=== PATIENT | male | born 2000 | race Caucasian/White ===

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

== ENCOUNTER → 2022-11-26 | Outpatient (CLI) | payer BC ==
[2022-11-26 08:38] LABS: Basophils # (auto) 0 10 ^3/uL (0-0.2); Basophils % (auto) 0.9 % (0.0-2.0); Eosinophils # (auto) 0.2 10 ^3/uL (0-0.8); Eosinophils % (auto) 6.1 % (0.0-7.0); Hematocrit 42.5 % (41.0-53.0); Hemoglobin 13.9 g/dL (13.5-17.5); Lymphocytes # (auto) 1.8 10 ^3/uL (0.4-5.4); Lymphocytes % (auto) 45.9 % (10.0-50.0); Mean Corpuscular Hemoglobin 26.2 pg (28.0-32.0); Mean Corpuscular Hgb Conc. 32.7 g/dL (32.0-36.0); Monocytes # (auto) 0.4 10 ^3/uL (0-1.3); Monocytes % (auto) 10.2 % (0.0-12.0); Neutrophils # (auto) 1.5 10 ^3/uL (1.6-8.6); Neutrophils % (auto) 36.9 % (37.0-80.0); Nucleated Red Blood Cells % 0.2 %; Red Cell Distribution Width 14.2 % (11.8-14.3)
[2022-11-26 10:02] LABS: Potassium 4.5 mmol/L (3.5-5.1)
[2022-11-26 10:23] LABS: Albumin 3.9 g/dL (3.4-5.0); BUN/Creatinine Ratio 12.7 (10.0-20.0); Bilirubin, Total 0.5 mg/dL (0.2-1.0); Total Protein 7.5 g/dL (6.4-8.2)
== END | disposition home or self-care (01) ==
LOC: LAB 08:16
PROVIDERS: ATTEND Nurse Practitioner Family
DX: Z00.01 Encounter for general adult medical examination with abnormal findings (principal); L70.8 Other acne; Z82.49 Family history of ischemic heart disease and other diseases of the circulatory system
CPT/HCPCS: 36415; 80053; 80061; 84439; 84443; 85025

== ENCOUNTER → 2023-01-02 | Outpatient (CLI) | payer BC ==
[2023-01-02 08:51] LABS: Basophils # (auto) 0 10 ^3/uL (0-0.2); Eosinophils # (auto) 0.4 10 ^3/uL (0-0.8); Hemoglobin 13.3 g/dL (13.5-17.5); Monocytes # (auto) 0.4 10 ^3/uL (0-1.3); Nucleated Red Blood Cells % 0.1 %
[2023-01-02 08:52] LABS: Basophils % (auto) 0.9 % (0.0-2.0); Eosinophils % (auto) 10.1 % (0.0-7.0); Lymphocytes # (auto) 1.8 10 ^3/uL (0.4-5.4); Mean Corpuscular Hemoglobin 25.8 pg (28.0-32.0); Mean Corpuscular Hgb Conc. 32.4 g/dL (32.0-36.0); Mean Corpuscular Volume 79.7 fL (80.0-100.0); Monocytes % (auto) 9.8 % (0.0-12.0); Neutrophils # (auto) 1.6 10 ^3/uL (1.6-8.6); Neutrophils % (auto) 37.2 % (37.0-80.0); Red Blood Cells 5.14 10^6/uL (4.5-5.90); Red Cell Distribution Width 13.6 % (11.8-14.3); White Blood Cell 4.2 10^3/uL (4.4-10.8)
== END | disposition home or self-care (01) ==
LOC: LAB 08:31
PROVIDERS: ATTEND Nurse Practitioner Family
DX: D70.9 Neutropenia, unspecified (principal)
CPT/HCPCS: 36415; 85025

== ENCOUNTER 2023-11-19 01:47 | Emergency (ER) | payer BC ==
[~2023-11-19] VITALS: Ht 175.3 cm; Wt 67.6 kg
[2023-11-19 02:40] LABS: Basophils # (auto) 0 10 ^3/uL (0-0.2); Eosinophils # (auto) 0.1 10 ^3/uL (0-0.8); Hemoglobin 14.3 g/dL (13.5-17.5); Lymphocytes # (auto) 0.5 10 ^3/uL (0.4-5.4); Neutrophils # (auto) 8.6 10 ^3/uL (1.6-8.6)
[2023-11-19 02:42] LABS: Basophils % (auto) 0.1 % (0.0-2.0); Eosinophils % (auto) 0.6 % (0.0-7.0); Hematocrit 43.9 % (41.0-53.0); Lymphocytes % (auto) 5.5 % (10.0-50.0); Mean Corpuscular Hgb Conc. 32.6 g/dL (32.0-36.0); Mean Corpuscular Volume 79.6 fL (80.0-100.0); Monocytes # (auto) 0.7 10 ^3/uL (0-1.3); Monocytes % (auto) 7.1 % (0.0-12.0); Neutrophils % (auto) 86.7 % (37.0-80.0); Nucleated Red Blood Cells % 0.1 %; Red Blood Cells 5.52 10^6/uL (4.5-5.90); Red Cell Distribution Width 14.2 % (11.8-14.3); White Blood Cell 9.9 10^3/uL (4.4-10.8)
[2023-11-19] MEDS ORDERED: ZOFR4T PO (02:56)
[2023-11-19] MEDS ORDERED: ACET-1304 PO (02:56)
[2023-11-19] MEDS ORDERED: DICY10CA PO (02:56)
[2023-11-19 03:05] LABS: Alanine Aminotransferase 24 U/L (7-40); Albumin 4.7 g/dL (3.2-4.8); Alkaline Phosphatase 52 U/L (46-116); Anion Gap 12 (5-15); Aspartate Aminotransferase 16 U/L (13-40); Bilirubin, Total 1.1 mg/dL (0.2-1.0); Blood Urea Nitrogen 17 mg/dL (9-23); Calcium 10.1 mg/dL (8.7-10.4); Carbon Dioxide 20 mmol/L (20-30); Chloride 105 mmol/L (98-107); Glucose 108 mg/dL (74-106); Lipase 40 U/L (12-53); Potassium 4.1 mmol/L (3.5-5.1); Sodium 137 mmol/L (136-145)
[2023-11-19 03:06] LABS: Total Protein 7.8 g/dL (5.7-8.2)
[2023-11-19 03:40] LABS: Urine Bacteria None Seen /hpf (None Seen)
[2023-11-19 04:03] LABS: Urine Blood Negative /uL (Negative); Urine Clarity Clear (Clear); Urine Color Yellow (Yellow); Urine Protein, UAD 1+ (Negative); Urine Specific Gravity 1.032 (1.001-1.035); Urine Urobilinogen 2 mg/dL (Negative); Urine WBC 1 /hpf (0 - 3); Urine pH 8.5 (5.0-9.0)
[2023-11-19] MEDS: ONDANSETRON HCL 4 MG/2 ML VIAL IV ONE (04:03)
[2023-11-19] MEDS: FAMOTIDINE (10MG/ML) 2ML VL IV ONE (04:03)
[2023-11-19] MEDS: SODIUM CHLORIDE 0.9% 2,000 ML IV ONE (04:07)
[2023-11-19] MEDS: KETOROLAC TROMETH 30 MG/ML 1ML VIAL IV ONE (04:08)
[2023-11-19 04:10] VITALS: BP 114/70; PULSE 87; RESP 20; TEMP 98.2; O2SAT 100
== END 2023-11-19 04:46 | disposition home or self-care (01) ==
LOC: EEVIPCON 01:47 → ER 01:47
DX: R10.84 Generalized abdominal pain (principal); R11.2 Nausea with vomiting, unspecified; Z98.890 Other specified postprocedural states; Z88.1 Allergy status to other antibiotic agents; Z79.899 Other long term (current) drug therapy
CPT/HCPCS: 36415; 74176; 80053; 81001; 83690; 85025; 96361; 96374; 96375; 99285; J1885; J2405; J3490; J7030

== ENCOUNTER → 2024-02-26 | Outpatient (CLI) | payer BC ==
[~2024-02-26] MED LIST: ACET-1304 PO; DICY10CA PO; ZOFR4T PO
[2024-02-26 12:46] LABS: % Iron Saturation 36.5 % (20-55)
[2024-02-26 12:47] LABS: Alanine Aminotransferase 14 U/L (7-40); Albumin 5.1 g/dL (3.2-4.8); Alkaline Phosphatase 52 U/L (46-116); Anion Gap 9 (5-15); Aspartate Aminotransferase < 8 U/L (13-40); BUN/Creatinine Ratio 14.1 (10.0-20.0); Bilirubin, Total 0.9 mg/dL (0.2-1.0); Blood Urea Nitrogen 14 mg/dL (9-23); Calcium 10.5 mg/dL (8.7-10.4); Carbon Dioxide 28 mmol/L (20-31); Chloride 102 mmol/L (98-107); Cholesterol 167 mg/dL (< 200); Glucose 85 mg/dL (74-106); HDL Cholesterol 65 mg/dL (40-59); LDL Cholesterol 96 mg/dL (< 100); Sodium 139 mmol/L (136-145); Total Protein 8.1 g/dL (5.7-8.2); Triglycerides 54 mg/dL (< 150)
== END | disposition home or self-care (01) ==
LOC: LAB 11:27
PROVIDERS: ATTEND Internal Medicine
DX: D70.9 Neutropenia, unspecified (principal); L65.9 Nonscarring hair loss, unspecified
CPT/HCPCS: 36415; 80053; 80061; 82306; 83540; 83550; 86900; 86901

== ENCOUNTER → 2024-03-02 | Outpatient (CLI) | payer BC | END | disposition home or self-care (01) | LOC: XYW 08:21 | PROVIDERS: ATTEND Internal Medicine | DX: R00.1 Bradycardia, unspecified (principal); I95.9 Hypotension, unspecified | CPT/HCPCS: 93306 ==

== ENCOUNTER → 2024-04-18 | Outpatient (CLI) | payer BC ==
[2024-04-18 12:45] VITALS: BP 144/55; PULSE 70; RESP 16
--- NOTE | 2024-04-18 12:46 | DVHCARD ---
Cardiology Stress Test [facility] Treadmill Stress Test [place] Referring MD: MD Chaitanya Protocol: Mike (without cardiolite) Reason for referral: Other (Bradycardia) Target heart Rate:@85%: 166 Percent MPHR: 196 METS: 10.10 Resting Heart rate: 70 Resting Blood Pressure: 140/61 Exercise Heart Rate: 110 Exercise Blood Pressure: 150/76 Reason for Termination of Test: Completion of Protocol Baseline EKG: Sinus rhythm with ST-segment depression to lead V3 Stress EKG: Sinus tachycardia w/o discernible ST changes Functional Capacity: Good Normal Heart Rate Response: Adequate Blood Pressure Response: Hypertensive Clinical response: Non-ischemic Arrhythmia?: No Cardiolite Injected?: No ST-T Changes: Non/Minimal Probability of Inducible Ische: Low Comments: Optimal functional capacity and chronotropic response. Date of Service: Apr 18, 2024 Billing Provider: JANELLE RIVAS MD Cardiology Common Codes: PROCEDURE ONLY Treadmill w/o Cardiolite: [id number], INTERP, RPT FRANCES LALA [employer] Apr 18, 2024 12:46
== END | disposition home or self-care (01) ==
LOC: XYW 11:43
PROVIDERS: ATTEND Internal Medicine
DX: R00.1 Bradycardia, unspecified (principal)
CPT/HCPCS: 93017

== ENCOUNTER 2024-08-21 18:51 | Emergency (ER) | payer BC ==
[~2024-08-21] VITALS: Ht 177.8 cm; Wt 66.0 kg
--- NOTE | 2024-08-21 19:30 | ED.PDOC ---
Musculoskeletal HPI Comments 23-year-old male with no pertinent past medical history, presents to ED for left ankle pain x2 hours, with no other associated symptoms. Patient reports that he was playing basketball and jumped up and then landed wrong on his ankle and rolled his ankle. He denies any numbness, tingling. The pain is localized to his left lateral ankle and does not radiate. He currently rates his pain as 7/10 in severity. No alleviating or aggravating factors. Chief Complaint: Lower Extremity Time Seen by MD: 19:01 Reviewed Notes: Nurses Notes, Medications, Allergies Allergies: Coded Allergies: Amoxicillin (Verified Allergy, Unknown, 11/19/23) Uncoded Allergies: NUTS (Allergy, Unknown, 09/06/17) Home Meds Active Scripts Acetaminophen (Tylenol Extra Strength) 500 Mg Tab, 1000 MG PO Q6HP PRN, #30 TAB P.r.n. fever or pain Prov:ANASTACIO MCARTHUR MD 11/19/23 Dicyclomine Hcl (BENTYL CAPSULE) 10 Mg Cp, 1-2 CAP PO Q6HP PRN, #30 CAP 11 Refills PRN abdominal pain Prov:ANASTACIO MCARTHUR MD 11/19/23 Ondansetron Odt 4MG Tab (ZOFRAN PO) 4 Mg Tb, 4 MG PO TID, #15 TAB ODT TAB-DISSOLVE IN MOUTH, THEN SWALLOW P.r.n. nausea/vomiting Prov:ANASTACIO MCARTHUR MD 11/19/23 Mode of Arrival: Wheelchair Past Medical History PAST MEDICAL HISTORY: Denies Surgical History: Denies all surgeries Family History Family History: Family hx of heart tyson Social History Smoker: Non-Smoker Alcohol: Denies ETOH Use Drugs: Denies Drug Use Lives In: Home Constitutional: denies: chills, diaphoresis, fatigue, fever, malaise, sweats, weakness, others EENTM: denies: blurred vision, double vision, ear bleeding, ear discharge, ear drainage, ear pain, ear ringing, eye pain, eye redness, hearing loss, mouth pain, mouth swelling, nasal discharge, nose bleeding, nose congestion, nose pain, photophobia, tearing, throat pain, throat swelling, voice changes, others Respiratory: denies: cough, hemoptysis, orthopnea, SOB at rest, shortness of breath, SOB with excertion, stridor, wheezing, others Cardiovascular: denies: chest pain, dizzy spells, diaphoresis, Dyspnea on exertion, edema, irregular heart beat, left arm pain, lightheadedness, palp itations, PND, syncope, others Gastrointestinal: denies: abdomen distended, abdominal pain, blood streaked bowels, constipated, diarrhea, dysphagia, difficulty swallowing, hematemesis, melena, nausea, poor appetite, poor fluid intake, rectal bleeding, rectal pain, vomiting, others Genitourinary: denies: burning, dysuria, flank pain, frequency, hematuria, incontinence, penile discharge, penile sore, pain, testicle pain, testicle swelling, urgency, others Neurological: denies: dizziness, fainting, headache, left sided numbness, left sided weakness, numbness, paresthesia, pre-existing deficit, right sided numbness, right sided weakness, seizure, speech problems, tingling, tremors, weakness, others Musculoskeletal: reports: joint pain, joint swelling; denies: back pain, gout, muscle pain, muscle stiffness, neck pain, others Integumetry: denies: bruises, change in color, change in hair/nails, dryness, laceration, lesions, lumps, rash, wounds, others Allergic/Immunocompromised: denies: Difficulty Healing, Frequent Infections, Hives, Itching, others Hematologic/Lymphatic: denies: anemia, blood clots, easy bleeding, easy bruising, swollen glands, others Endocrine: denies: excessive hunger, excessive sweating, excessive thirst, excessive urination, flushing, intolerance to cold, intolerance to heat, unexpl ained weight gain, unexplained weight loss, others Psychiatric: denies: anxiety, bipolar disorder, depression, hopeless, panic disorder, schizophrenia, sleepless, suicidal, others All Other Systems: Reviewed and Negative Physical Exam General Appearance: No Apparent Distress, Normal HEENT: Normal ENT Inspection, Pharynx Normal, TMs Normal Neck: Full Range of Motion, Non-Tender, Normal, Normal Inspection Respiratory: Chest Non-Tender, Lungs Clear, No Accessory Muscle Use, No Respiratory Distress, Normal Breath Sounds Cardiovascular: No Edema, No JVD, No Murmur, No Gallop, Normal Peripheral Pulses, Regular Rate/Rhythm Breast Exam: Deferred Gastrointestinal: No Organomegaly, Non Tender, No Pulsatile Mass, Normal Bowel Sounds, Soft Genitalia: Deferred Pelvic: Deferred Rectal: Deferred Extremities: No calf tenderness, Normal capillary refill, Normal inspection, Normal range of motion, No pedal edema, Swelling (Moderate swelling to the left lateral malleolus. CMS intact distally, normal dorsiflexion and plantarflexion. ), Tender (Tenderness to palpation to the left lateral malleolus), Other (No tenderness to palpation to the foot, nontender to the tibia/fibula region) Musculoskeletal : Apperance: Normal Neurologic: Alert, wirer passenger car II-XII nml as Tested, No Motor Deficits, Normal Affect, Normal Mood, No Sensory Deficits Cerebellar Function: Normal Reflexes: Normal Skin: Dry, Normal Color, Warm Lymphatic: No Adenopathy Was a procedure done? Was a procedure done?: No Differential Diagnosis EXT Differential Diagnosis: Fracture, Sprain, Dislocation, Contusion, Neurovascular injury X-Ray, Labs, Meds, VS Vital Signs Date Time Temp Pulse Resp B/P (MAP) Pulse Ox O2 Delivery O2 Flow Rate FiO2 08/21/24 19:27 98.9 97 18 129/45 (73) 100 98.9 X-Ray, Labs, Meds, VS Comment MDM: Patient with history as above presented with left ankle pain. History obtained from patient. Patient was nontoxic, stable, afebrile, in wheelchair, no acute distress. Exam as above. Independently reviewed imaging. Left ankle x-ray did not show acute fracture or dislocation. Reviewed external records. All findings were discussed with the patient. Differential diagnosis considered. Overall presentation is consistent with left ankle sprain. Low suspicion for fracture, dislocation, neurovascular injury. Patient did not want any pain medication in the ED. Patient was placed in a ankle sports stirrup brace to help with immobilization. Advised patient to rest, ice, compress, elevate the affected extremity. Tylenol and Ibuprofen may be used for pain management. Patient was reevaluated and vital signs were reviewed. Consideration was given for admission, but the patient was stable for outpatient management. Disposition: Discussed the need to follow up diagnostics, including incidental findings. Discharged the patient with instructions to obtain outpatient follow up in 1-2 days of today's symptoms and findings, with strict return precautions if patient develops new or worsening symptoms. This medical document was created using the Dragon [employer] dictation system. Although this document has been carefully reviewed, there may still be some phonetic and typographical errors, which are due to imperfections of the software program, and do not reflect any compromise in the patient's medical care. Time of 1ST Reevaluation: 19:51 Reevaluation 1ST: Improved Patient Education/Counseling: Diagnosis, Treatment, Prognosis, Need For Follow Up Family Education/Counseling: No Family Present Departure 1 Departure Time of Disposition: 19:53 Impression: Primary Impression: Ankle sprain Qualified Codes: S93.402A - Sprain of unspecified ligament of left ankle, initial encounter Disposition: 01 HOME / SELF CARE / HOMELESS Condition: Fair Critical Care Note Critical Care Time?: No Stability Stability form required: No Heart Score Heart Score: Heart Score Response (Comments) Value History N/A 0 EKG N/A 0 Age N/A 0 Risk Factors N/A 0 Troponin N/A 0 Total 0 AGUILA ROBLES [facility] Aug 21, 2024 19:30
--- NOTE | 2024-08-21 19:59 | DVH ---
CLINICAL INDICATION: R/o fracture TECHNIQUE: XY L ANKLE 3 VIEW Comparison: None FINDINGS: Considerable soft tissue swelling overlying the lateral malleolus. Ankle joint effusion is present. n o osseous abnormality noted with no fracture or dislocation. Ankle mortise appears unremarkable. IMPRESSION: No fracture or dislocation.
[2024-08-21 20:06] VITALS: PULSE 93; RESP 22
[2024-08-21 20:13] VITALS: BP 140/86; PULSE 96; RESP 14; TEMP 98.2; O2SAT 93
== END 2024-08-21 20:15 | disposition home or self-care (01) ==
LOC: EEVIPCON 18:51 → ER 18:51
DX: S93.492A Sprain of other ligament of left ankle, initial encounter (principal); Z88.0 Allergy status to penicillin; X50.1XXA Overexertion from prolonged static or awkward postures, initial encounter; Y93.67 Activity, basketball; Y92.89 Other specified places as the place of occurrence of the external cause; Y99.8 Other external cause status
CPT/HCPCS: 73610